=== PATIENT | male | born 1970 | race African-American/Black ===

== ENCOUNTER 2022-01-02 20:09 | Emergency (ER) | payer OTHER ==
[~2022-01-02] VITALS: Ht 185.4 cm; Wt 138.3 kg
[~2022-01-02 20:09] MED LIST: LOPRESSOR25 MG PO; METFORMIN HCL500 MG PO; PROTONIX40 MG PO
== END 2022-01-02 21:06 | disposition home or self-care (01) ==
LOC: ER 20:12
DX: K59.09 Other constipation (principal); I10 Essential (primary) hypertension
CPT/HCPCS: 99282